=== PATIENT | female | born 1995 | race Caucasian/White ===

== ENCOUNTER → 2023-08-29 13:14 | Outpatient (REF) | payer OTHER, SELFPAY | LOC: HWRAD 13:14 | PROVIDERS: ATTENDING PHYSICIAN Obstetrics & Gynecology; FAMILY PHYSICIAN Family Medicine | DX: Z34.90 Encounter for supervision of normal pregnancy, unspecified, unspecified trimester (principal); Z36.9 Encounter for antenatal screening, unspecified | CPT/HCPCS: 76801; 76817 ==

== ENCOUNTER → 2023-09-23 10:53 | Outpatient (REF) | payer OTHER, SELFPAY | LOC: PNTC 10:53 | PROVIDERS: ATTENDING PHYSICIAN Obstetrics & Gynecology | DX: Z36.0 Encounter for antenatal screening for chromosomal anomalies (principal) | CPT/HCPCS: 36415; 76801; 76813 ==

== ENCOUNTER → 2023-11-18 13:35 | Outpatient (REF) | payer OTHER, SELFPAY | LOC: PNTC 13:35 | PROVIDERS: ATTENDING PHYSICIAN Obstetrics & Gynecology | DX: Z34.82 Encounter for supervision of other normal pregnancy, second trimester (principal) | CPT/HCPCS: 76805 ==

== ENCOUNTER 2024-03-25 04:00 | Inpatient (IN) | payer OTHER, SELFPAY ==
[2024-03-25 04:04] VITALS: BP 128/79; BMI 22.9
[2024-03-25 04:53] LABS: Hemoglobin 11.3 g/dL (12.0-16.0); Mean Corp Hgb Conc. 35.3 g/dL (33.0-37.0); Mean Corpuscular Volume 90.7 fL (81.0-99.0); Mean Platelet Volume 11.5 fL (7.4-10.4); Platelet Count 165 10^3/uL (130-400); Red Blood Cell Count 3.53 10^6/uL (4.20-5.40); Red Cell Dist. Width 12.3 % (11.5-14.5); White Blood Cell Count 9.4 10^3/uL (4.8-10.8)
[2024-03-25] MEDS: XYLOCAINE-MPF 1% VIAL 30 ML INFIL (06:25)
[2024-03-25] MEDS: PITOCIN 30 UNITS/NSS 500 ML IV (06:30)
[2024-03-25] MEDS: PRENATAL PLUS PO (13:03)
[2024-03-25] MEDS: SENOKOT-S 1 TABLET PO (13:04)
[2024-03-26 05:24] LABS: Hematocrit 27.3 % (37.0-47.0); Hemoglobin 9.9 g/dL (12.0-16.0)
[2024-03-26] MEDS: SENOKOT-S 1 TABLET PO (08:58)
[2024-03-26] MEDS: FEOSOL 325 MG PO (08:58)
[2024-03-26] MEDS: PRENATAL PLUS 1 TABLET PO (08:58)
[2024-03-26] MEDS: MOTRIN 600 MG PO (20:36)
[2024-03-27] MEDS: PRENATAL PLUS 1 TABLET PO (08:16)
[2024-03-27] MEDS: FEOSOL 325 MG PO (08:16)
[2024-03-27 16:26] LABS: Syphilis/T. pallidum Ab Reflex Negative (Negative)
== END 2024-03-27 12:36 | disposition home or self-care (01) | DRG 807 ==
LOC: LDRP 04:00
PROVIDERS: Obstetrics & Gynecology; ADMITTING PHYSICIAN Obstetrics & Gynecology; FAMILY PHYSICIAN Family Medicine; REFERRING PHYSICIAN Obstetrics & Gynecology
PROC: 10907ZC Drainage of Amniotic Fluid, Therapeutic from Products of Conception, Via Natural or Artificial Opening (ICD-10-PCS; 2024-03-25)
PROC: 10E0XZZ Delivery of Products of Conception, External Approach (ICD-10-PCS; 2024-03-25)
PROC: 0UQMXZZ Repair Vulva, External Approach (ICD-10-PCS; 2024-03-25)
PROC: 0KQM0ZZ Repair Perineum Muscle, Open Approach (ICD-10-PCS; 2024-03-25)
DX: O32.6XX0 Maternal care for compound presentation, not applicable or unspecified (principal); Z37.0 Single live birth; O69.81X0 Labor and delivery complicated by cord around neck, without compression, not applicable or unspecified; O70.1 Second degree perineal laceration during delivery; Z3A.38 38 weeks gestation of pregnancy
CPT/HCPCS: 36415; 85014; 85018; 85027; 86780; 86850; 86900; 86901